=== PATIENT | female | born 1965 | race American Indian/Alaskan Native ===

== ENCOUNTER 2020-04-10 08:41 | Outpatient (CLI) | payer BC ==
--- NOTE | 2020-04-10 09:50 | Mammography Report ---
DIGITAL SCREENING MAMMOGRAM WITH CAD, 04/10/2020 CLINICAL INFORMATION / INDICATION: Routine screening mammography. TECHNIQUE: Digital bilateral 2D mammography was obtained in the craniocaudal and mediolateral obliqu e projections. This examination was interpreted with the benefit of Computer-Aided Detection analysis . COMPARISON: 07/19/2015 FINDINGS: Breast Density: The breasts are almost entirely fatty. No dominant mass or architectural distortion is identified in either breast. Liver, there are increas ing clustered calcifications in the right breast at 10-11:00, anterior depth. Similar increasing clus tered calcifications are seen in the left breast lower inner quadrant, anterior depth. Bilateral magn ification views will be required. There is underlying benign-appearing scattered nodularity throughout both breasts. IMPRESSION: Increasing clusters of microcalcifications bilaterally as described above. Recommend bila teral magnification views. Follow up recommendation: Bilateral magnification views. BI-RADS Category 0: Incomplete. Needs additional imaging evaluation and/or prior mammograms for mary rison. A "normal" or negative report should not discourage follow up or biopsy of a clinically significant f inding. A written summary of these findings will be mailed to the patient. The patient will be entered into a mammography reporting system which will generate a reminder letter for the patient's next appointmen t at the appropriate interval. The [employer] recommends yearly mammograms starting at age 40 and continuing as l odell as a woman is in good health. Breast MRI is recommended for women with an approximate 20-25% or greater lifetime risk of breast cancer, including women with a strong family history of breast or ova maylin cancer or who have been treated for Hodgkin's disease. Signer Name: Ashley Andujar MD Signed: 04/10/2020 9:46 AM Workstation Name: [email or web address]
== END 2020-04-10 08:42 | disposition home or self-care (01) ==
LOC: SPVWC 08:41
PROVIDERS: ATTEND Internal Medicine
DX: Z12.31 Encounter for screening mammogram for malignant neoplasm of breast (principal)
CPT/HCPCS: 77067

== ENCOUNTER 2020-05-26 10:01 | Outpatient (CLI) | payer BC ==
--- NOTE | 2020-05-26 11:43 | Mammography Report ---
DIGITAL DIAGNOSTIC MAMMOGRAM WITH CAD CONVENTIONAL, 05/26/2020 CLINICAL INFORMATION / INDICATION: Patient presents as a callback from screening mammogram for furthe r evaluation of calcifications in both breasts. TECHNIQUE: Digital bilateral mammographic imaging was performed. Magnification views were obtained. This examination was interpreted with the benefit of Computer-aided Detection analysis. COMPARISON: Prior mammograms 04/10/2020 and 07/19/2015 FINDINGS: Breast Density: The breasts are almost entirely fatty. As seen on recent screening mammogram, there are grouped coarse heterogeneous calcifications seen in the anterior upper outer quadrant of the right breast as well as the lower inner quadrant of the left breast, middle depth. The calcifications overall appears similar to minimally increased in extent co mpared with prior mammogram in 2016, but demonstrate a more coarsened, benign appearance. The morphol ogy suggests the possibility of developing fat necrosis. Additional scattered benign-appearing calcif ications are seen in both breasts. IMPRESSION: 1. Calcifications in both breasts are considered probably benign and felt to represent developing fat necrosis. Recommend bilateral diagnostic mammogram with magnification views in [address] ability. Follow up recommendation: Short term follow up in 6 months. BI-RADS Category 3: Probably Benign. Followup in 6 months. A "normal" or negative report should not discourage follow up or biopsy of a clinically significant f inding. A written summary of these findings will be mailed to the patient. The patient will be entered into a mammography reporting system which will generate a reminder letter for the patient's next appointmen t at the appropriate interval. According to the [employer], yearly mammograms are recommended starting at age 40 and continuing as long as a woman is in good health. Breast MRI is recommended for women with an sae roximately 20-25% or greater lifetime risk of breast cancer, including women with a strong family his tory of breast or ovarian cancer and women who have been treated for Hodgkin's disease. Signer Name: Lili Yang MD Signed: 05/26/2020 11:38 AM Workstation Name: [id number]
== END 2020-05-26 10:02 | disposition home or self-care (01) ==
LOC: SPVWC 10:01
PROVIDERS: ATTEND Internal Medicine
DX: R92.1 Mammographic calcification found on diagnostic imaging of breast (principal)
CPT/HCPCS: 77066